=== PATIENT | male | born 1985 | race Caucasian/White ===

== ENCOUNTER 2020-12-25 08:53 | Emergency (ER) | payer OTHER ==
[~2020-12-25] VITALS: Ht 188 cm; Wt 90.7 kg
[2020-12-25 09:04] VITALS: BP 119/63
--- NOTE | 2020-12-25 09:45 | NUR ---
35 YEAR OLD MALE COMPLAINS OF RIGHT FLANK PAIN X 2 WEEKS. PT STATES ON/OFF PAIN GETTING PROGRESSIVELY WORSE. PT CONCERNED ABOUT URINE APPEARANCE BEING MORE "BUBBLY". PT DENIES N/V/D, DENIES ABDOMINAL PAIN. AMBULATED TO ED BED 5 WITH UPRIGHT STEADY GAIT, CLUTCHING RIGHT FLANK. STATES PAIN IS CONSTANT, BUT NOT SHARP, NO HX OF KIDNEY STONES OR PYELONEPHRITIS, DENIES INJURY.
--- NOTE | 2020-12-25 10:25 | NUR ---
DR VELASCO IN TO SEE PATIENT FOR INITIAL EXAM AND EVAL. ORDERS RECEIVED.
[2020-12-25 10:41] LABS: APPEARANCE,URINE CLEAR (CLEAR); BILIRUBIN,URINE NEGATIVE (NEGATIVE); BLOOD, URINE 1+ (NEGATIVE); LEUKOCYTE ESTERASE ,URINE NEGATIVE (NEGATIVE); NITRITE, URINE NEGATIVE (NEGATIVE); UGLUCOSE NEGATIVE (NEGATIVE)
[2020-12-25 10:48] LABS: COLOR,URINE YELLOW (YELLOW)
[2020-12-25 11:05] LABS: RBC,URINE 0-5 /HPF (0-5); WBC,URINE 0-5 /HPF (0-5)
[2020-12-25 11:54] LABS: BASOPHILS # (AUTO) 0.1 K/uL (0.00-0.22); BASOPHILS % (AUTO) 0.7 % (0.0-2.0); EOSINOPHILS # (AUTO) 0.1 K/uL (0-0.4); EOSINOPHILS % (AUTO) 1.4 % (0.0-4.0); HEMATOCRIT 42.8 % (36-52); HEMOGLOBIN 14.7 g/dL (12.0-18.0); LYMPHOCYTES # (AUTO) 1.7 K/uL (2.0-11.5); LYMPHOCYTES % (AUTO) 22.3 % (20.5-51.1); MEAN CORPUSCULAR HEMOGLOBIN 33 pg (27-31); MEAN CORPUSCULAR HGB CONC 34 g/dL (33-37); MEAN CORPUSCULAR VOLUME 94.4 fL (80-94); MONOCYTES # (AUTO) 0.6 K/uL (0.8-1.0); MONOCYTES % (AUTO) 7.3 % (1.7-9.3); NEUTROPHILS # (AUTO) 5.2 K/uL (1.8-7.7); NEUTROPHILS % (AUTO) 68.3 % (42.2-75.2); PLATELET COUNT (AUTO) 327 K/uL (140-450); RED BLOOD CELL COUNT(AUTO) 4.53 MIL/uL (4.20-6.10); RED CELL DISTRIBUTION WIDTH 12.6 % (11.6-13.7); WHITE BLOOD COUNT (AUTO) 7.6 K/uL (4.8-10.8)
[2020-12-25 12:36] LABS: ANION GAP 12.2 (8-16); CARBON DIOXIDE 27.8 mmol/L (21-32); CREATININE 0.9 mg/dL (0.6-1.3)
[2020-12-25 12:42] LABS: ALBUMIN 4.4 g/dL (3.4-5.0); TOTAL BILIRUBIN 0.8 mg/dL (0.0-1.0)
--- NOTE | 2020-12-25 13:02 | NUR ---
AWAITING REEVAL AND DISPOSITION, RESTING QUIETLY AT THIS TIME.
[2020-12-25 13:03] VITALS: BP 126/63
--- NOTE | 2020-12-25 13:25 | NUR ---
IV removed, catheter intact and site benign. Applied folded 4x4 gauze and tape to stop bleeding.
--- NOTE | 2020-12-25 13:26 | NUR ---
PT SENT TO WAIT IN ER LOBBY FOR RESULTS.
[2020-12-25] MEDS ORDERED: NAPR-54 PO (14:05)
== END 2020-12-25 14:20 | disposition home or self-care (01) ==
LOC: MED 08:53
DX: M54.9 Dorsalgia, unspecified (principal); R31.29 Other microscopic hematuria
CPT/HCPCS: 36415; 80053; 81001; 85025; 99284

== ENCOUNTER 2022-01-26 21:44 | Emergency (ER) | payer OTHER ==
[~2022-01-26] VITALS: Ht 188 cm; Wt 90.7 kg
[~2022-01-26 21:44] MED LIST: NAPR-54 PO
[2022-01-26 21:52] VITALS: BP 166/107
--- NOTE | 2022-01-26 22:59 | NUR ---
Patient returned back from X-ray.
--- NOTE | 2022-01-26 23:13 | NUR ---
PT TAKEN TO BED 2
--- NOTE | 2022-01-26 23:20 | NUR ---
ASSUME CARE OF PT, PT AMBULATED TO ED2, PT C/O CP TIGHTNESS X 5 DAY WITH SOB, PT STATES INCREASE SOB AT NIGHT WHEN HE IS LYING DOWN. PT PLACED ON FIELD SUPPORT TECHNICIAN, DENIES ANY MEDICAL HISTORY.
[2022-01-26 23:29] LABS: BASOPHILS # (AUTO) 0.1 K/uL (0.00-0.22); BASOPHILS % (AUTO) 0.6 % (0.0-2.0); EOSINOPHILS # (AUTO) 0.2 K/uL (0-0.4); EOSINOPHILS % (AUTO) 2.7 % (0.0-4.0); HEMATOCRIT 40.9 % (36-52); HEMOGLOBIN 14.3 g/dL (12.0-18.0); LYMPHOCYTES % (AUTO) 32.7 % (20.5-51.1); MEAN CORPUSCULAR HEMOGLOBIN 32 pg (27-31); MEAN CORPUSCULAR HGB CONC 35 g/dL (33-37); MEAN CORPUSCULAR VOLUME 92.3 fL (80-94); MONOCYTES # (AUTO) 0.5 K/uL (0.8-1.0); MONOCYTES % (AUTO) 5.9 % (1.7-9.3); NEUTROPHILS # (AUTO) 5.3 K/uL (1.8-7.7); NEUTROPHILS % (AUTO) 58.1 % (42.2-75.2); PLATELET COUNT (AUTO) 308 K/uL (140-450); RED BLOOD CELL COUNT(AUTO) 4.43 MIL/uL (4.20-6.10); RED CELL DISTRIBUTION WIDTH 12.7 % (11.6-13.7); WHITE BLOOD COUNT (AUTO) 9.2 K/uL (4.8-10.8)
[2022-01-26 23:50] LABS: ALBUMIN 4.2 g/dL (3.4-5.0); ANION GAP 13.9 (8-16); ASPARTATE AMINOTRANSFERASE 18 U/L (15-37); CARBON DIOXIDE 27.7 mmol/L (21-32); CHLORIDE 103 mmol/L (98-107); CREATININE 0.9 mg/dL (0.6-1.3); GFR ARICAN-AMERICAN 123 mL/min (>90); GLUCOSE 91 mg/dL (74-106); POTASSIUM 3.6 mmol/L (3.5-5.1); SODIUM SERUM 141 mmol/L (136-145); TOTAL BILIRUBIN 0.5 mg/dL (0.0-1.0); UREA NITROGEN, BLOOD 10 mg/dL (7-18)
--- NOTE | 2022-01-27 01:33 | NUR ---
Patient discharged with v/s stable. Written and verbal after care instructions given and explained. Patient alert, oriented and verbalized understanding of instructions. Ambulatory with steady gait. All questions addressed prior to discharge. ID band removed. Patient advised to follow up with PMD. Patient educated on indication of medication including possible reaction and side effects. Opportunity to ask questions provided and answered.
[2022-01-27 01:34] VITALS: BP 138/71
== END 2022-01-27 01:33 | disposition home or self-care (01) ==
LOC: MED 21:44
DX: R07.89 Other chest pain (principal); F41.9 Anxiety disorder, unspecified; Z79.1 Long term (current) use of non-steroidal anti-inflammatories (NSAID)
CPT/HCPCS: 36415; 71045; 80053; 84484; 85025; 93005; 99285

== ENCOUNTER 2023-01-10 16:08 | Emergency (ER) | payer OTHER ==
[~2023-01-10] VITALS: Ht 188 cm; Wt 90.7 kg
[2023-01-10 16:11] VITALS: BP 140/81; PULSE 94; RESP 16; TEMP 97.7; O2SAT 95
== END 2023-01-10 17:11 | disposition home or self-care (01) ==
LOC: MED 16:08
DX: S83.8X1A Sprain of other specified parts of right knee, initial encounter (principal); X50.1XXA Overexertion from prolonged static or awkward postures, initial encounter; Y93.89 Activity, other specified; Y92.89 Other specified places as the place of occurrence of the external cause; Y99.8 Other external cause status
CPT/HCPCS: 73562; 99283